=== PATIENT | male | born 1990 | race Caucasian/White ===

== ENCOUNTER 2023-03-10 10:33 | Emergency (ER) | payer OTHER ==
--- OUTSIDE RECORDS SUMMARY | 2023-03-10 10:36 | XMS REPORT | Continuity of Care Document ---
:1990 Author Organization [facility] t Address [address] [facility] [address] [place] [address] Care Team Providers Name Role Phone Pcp, Patient Does Not Have A Primary Care Physician [id number] Go Stout Attending Clinician Unavailable Amado Attending Clinician Unavailable Rios BETANCUR Attending Clinician Unavailable Rios Warren Attending Clinician Doctor Unassigned, [place] Attending Clinician Unavailable Apurva Jimenez Attending Clinician APURVA MAST Attending Clinician Unavailable Lab, Adc Fam Pob I Attending Clinician Unavailable Elzbieta Dykes Attending Clinician ELZBIETA NOGUERA Attending Clinician Unavailable Physician, No Primary or Family Admitting Clinician Unavaila sterling Fischer Admitting Clinician Unavailable Rios BETANCUR Admitting Clinician Unavailable Payers Payer Name Policy Type Policy Number Effective Date Expiration Date Naa euceda [facility] [id number] 2022 [facility] 00:00:00 [place] [id number] (PPO[place] R [id number] 2022 00:00:00 Problems Condition Condition Condition Status Onset Resolution Last Treating Co mments Source Name Details Category Date Date Treatment Clinician Date No known No known Disease Unive rs active active ity of problems problems [facility] Allergies, Adverse Reactions, Alerts Allergy Allergy Status Severity Reaction(s) Onset Inactive Treating Comm ents Source Name Type Date Date Clinician Penicill DA Active [facility] 8 Clear 00:00: Soto 00 [facility] Penicill DA Active [facility] ins 8 Clear 00:00: Soto 00 [facility] NO KNOWN Drug Active Univers ALLERGIE Class ity of S [facility] Social History Social Habit Start Date Stop Date Quantity Comments Source Sexual orientation [facility] Exposure to 2022-07-02 2022-07-12 Not sure [facility] SARS-CoV-2 (event) 00:00:00 10:37:00 [facility] Sex Assigned At [birth year] [facility] 00:00:00 00:00:00 [facility] Smoking Status Start Date Stop Date Source Tobacco smoking consumption Univ [facility] Medications Ordered Filled Start Stop Current Ordering Indication Dosage Frequency Signature Comments Components Source Medication Medication Date Date Medication? Clinician (SIG) Name Name ketorolac 2022- No 15mg 15 mg, Unive rs (TORADOL) 07-12 Intramuscu ity of injection 17:30: 16:32 [place], ONCE, [place] 15 mg 00 :00 1 dose, On Medical Mon Branch 07/12/22 at 1230, TURNER HYDROcodone 2022- No 1{tbl} 1 tablet, Univers -acetaminop 07-12 Oral, ity of hen (NORCO) 17:30: 16:32 [place]CE[place] 10-325 mg 00 :00 dose, On Medica l tablet 1 Mon Branch tablet 07/12/22 at 1230, Routine methocarbam Yes [id number] 500mg Take 1 Univers oL 500 mg -13 tablet by ity o f tablet 00:00: mouth 4 [place] 00 (four) Medical times Branch daily. ibuprofen Yes [id number] 600mg Take 1 Univers 600 mg -13 tablet by ity of tablet 00:00: mouth [place] 00 every 6 Medical (six) Branch hours as needed for Pain (scale 4-6). traMADoL 50 2020- No 4647 50mg Take 1 Uni vers mg tablet 10-1625 tablet by ity of 00:00: 04:59 mouth [place] 00 :00 every 6 Medical (six) Branch hours as needed for Pain (scale 4-6) for up to 7 days. Indication s: acute pain traMADoL 50 2020- No 4647 50mg Take 1 Uni vers mg tablet 10-1625 tablet by ity of 00:00: 04:59 mouth [place] 00 :00 every 6 Medical (six) Branch hours as needed for Pain (scale 4-6) for up to 7 days. Indication s: acute pain traMADoL 50 2020- No 4647 50mg Take 1 Uni vers mg tablet 10-1625 tablet by ity of 00:00: 04:59 mouth [place] 00 :00 every 6 Medical (six) Branch hours as needed for Pain (scale 4-6) for up to 7 days. Indication s: acute pain traMADoL 50 2020- No 4647 50mg Take 1 Uni vers mg tablet 10-08 tablet by ity of 00:00: 04:59 mouth [place] 00 :00 every 6 Medical (six) Branch hours as needed for Pain (scale 4-6) for up to 7 days. Indication s: acute pain traMADoL 50 2020- No 4647 50mg Take 1 Uni vers mg tablet 10-08 tablet by ity of 00:00: 04:59 mouth [place] 00 :00 every 6 Medical (six) Branch hours as needed for Pain (scale 4-6) for up to 7 days. Indication s: acute pain No known No [facility] No known No [facility] No known No [facility] No known No [facility] medications [facility] No known No Univers medications [facility] No known No Univers medications [facility] Vital Signs Vital Name Observation Time Observation Value Comments Source Systolic blood 2022-07-12 15:38:00 134 mm[Hg] Univer sity of pressure [facility] Diastolic blood 2022-07-12 15:38:00 76 mm[Hg] Unive rsity of pressure [facility] Heart rate 2022-07-12 15:38:00 70 /min Universi ty of [facility] Body temperature 2022-07-12 15:38:00 36.83 Samantha [facility] ersity of [facility] Respiratory rate 2022-07-12 15:38:00 20 /min [facility] ersity of [facility] Body height 2022-07-12 15:38:00 175.3 cm Universi ty of [facility] Body weight 2022-07-12 15:38:00 90.719 kg Universi ty of [facility] [place] [facility] Branch BMI 2022-07-12 15:38:00 29.53 kg/m2 Universi ty of [facility] Oxygen saturation in 2022-07-12 15:38:00 98 /min [facility] Arterial blood by [facility] Pulse oximetry Branch Body temperature 2020-11-13 21:31:00 36.83 Samantha [facility] Body height 2020-11-13 21:31:00 175.3 cm Universi ty of [facility] Body weight 2020-11-13 21:31:00 80.513 kg Universi ty of [facility] BMI 2020-11-13 21:31:00 26.21 kg/m2 Universi ty of [facility] Body temperature 2020-10-16 20:10:00 36.78 Samantha [facility] ersity of [facility] Body height 2020-10-16 20:10:00 175.3 cm Universi ty of [facility] Body weight 2020-10-16 20:10:00 81.466 kg Universi ty of [facility] BMI 2020-10-16 20:10:00 26.52 kg/m2 Universi ty of [facility] Body temperature 2020-10-08 16:12:00 36.78 Samantha [facility] ersity of [facility] Body height 2020-10-08 16:12:00 175.3 cm Universi ty of [facility] Body weight 2020-10-08 16:12:00 83.19 kg Universi ty of [facility] BMI 2020-10-08 16:12:00 27.08 kg/m2 Universi ty of [facility] Procedures Procedure Date / Time Performing Clinician Source Performed CONSENT/REFUSAL FOR 2022-07-12 15:25:56 [facility] DIAGNOSIS AND TREATMENT [place] [facility] XR WRIST 3+ VW LEFT 2020-10-16 20:29:48 Apurva Mast ty [facility] NO SHOW OR MISSED 2020-10-08 16:01:[address] [facility] APPOINTMENT POLICY [place] Medical [facility] h ACKNOWLEDGEMENT Encounters Start End Encounter Admission Attending Care Care Encounter Source Date/Time Date/Time Type Type Clinicians Facility Department ID 2020-10-05 Inpatient EM Girish, HCACL DARCI [id number] [facility] 17:49:00 Go Mahmood [facility] 2022-09-13 2022-09-13 Outpatient FOG_Burke_R AOSM AOSM [id number] Gloria 00:00:00 00:00:00 Agata [id number] [facility] 2022-09-10 2022-09-10 Outpatient FOG_Burke_R AOSM AOSM [id number] Gloria 00:00:00 00:00:00 Agata [id number] Ortho pe dic [facility] Medicin e 2022-07-12 2022-07-12 Emergency X GYPSY, K [facility] ERT [id number] Univers 10:39:00 13:32:00 ity of [facility] 2022-07-12 2022-07-12 Emergency Gypsy, K [facility] [id number] Univers 10:39:00 13:32:00 Carla GUEVARA [id number] i ty [facility] [id number] [facility] [id number] [facility] 084 Branch 2022-07-12 2022-07-12 Orders Doctor OLEKSANDR [id number] Univers 00:00:00 00:00:00 Only UnassignedJANETTE [id number] ity of [place] [facility] [id number] [facility] [id number] [facility] 009 Branch 2020-11-13 2020-11-13 Hospital Pro [facility] [id number] Univers 16:35:00 23:59:00 Encounter Apurva SPECIALTY [id number] ity of [id number] [phone] Mn liyah GRIFFITH [address] [facility] 2020-11-13 2020-11-13 [facility] [id number] Univers 16:25:32 17:02:04 Visit Apurva SPECIALTY [id number] ity [id number] [place] [phone] Mn liyah GRIFFITH [address] [facility] 2020-11-13 2020-11-[address] [facility] [id number] Univers 16:40:00 16:40:00 APURVA ity [facility] 2020-10-16 2020-10-16 Hospital [facility] [id number] Univers 15:15:00 23:59:00 Encounter Apurva SPECIALTY [id number] ity of CARE [id number] [facility] [phone] Mn rissanorbert MARTINLucy [address] [facility] 2020-10-16 2020-10-16 Outpatient R [facility] [id number] Univers 16:40:00 16:40:00 APURVA ity [facility] 2020-10-16 2020-10-16 Office [facility] [id number] Univers 15:04:09 15:56:17 Visit Apurva SPECIALTY [id number] ity of C[id number] [id number] Mn liyah MARTINLucy [address] [place] [address] 2020-10-08 2020-10-08 Office [facility] 1.2.840.114 [id number] Univers 11:02:23 12:11:09 Visit Apurva SPECIALTY [id number] ity of C[place] [id number] [place] [phone] Mn rissanorbert MARTINLucy [address] [place] [address] 2020-10-08 2020-10-08 Outpatient R [facility] [id number] Univers 11:20:00 11:20:00 APURVA ity [facility] 2020-10-08 2020-10-08 Orders Doctor OLEKSANDR 1.2.840.114 [id number] Univers 00:00:00 00:00:00 Only Unassigned, JANETTE [id number] ity of [place] HOSPITAL [id number] [place] as [id number] [facility] [address] [place] 2019-11-08 2019-11-08 Patient Doctor OLEKSANDR 1.2.840.114 [id number] Univers 00:00:00 00:00:00 Secure Msg Unassigned, JANETTE [id number] ity of [place] HOSPITAL [id number] [place] as [id number] [facility] [address] [place] 2019-11-06 2019-11-06 Laboratory Lab, [facility] Fam Pob I [facility] 1.2. [id number] [facility] 13:42:44 14:02:44 Only Elzbieta [facility] [id number] ity of [place] [id number] [place] as Professio [phone] Mn dical [address] Office Building [facility] 2019-11-06 2019-11-06 Laboratory Lab, [facility] 1.2.840.114 [id number] 13:42:44 14:02:44 Only Fam Pob I Health [id number] [place] [id number] Professio [phone] [place] [address] Office Building [facility] 2019-11-06 2019-11-[address] [facility] [id number] [place] [facility] 13:40:00 13:40:00 ELZBIETA suarez [facility] Results Test Description Test Time Test Comments Results Result [facility] e Comments XR WRIST 3+ VW 2020-09-30 Healing distal Unive rsity of LEFT 7 radius fracture. [facility] 21:07:29 4728 Electronically [facility] h signed by Luisito Wright at 10/16/2020 4:07 PMORDERING PHYSICIAN: APURVA MAST HISTORY: Radius fracture COMPARISON: October 05, 2020 TECHNIQUE: 3 views FINDINGS: Cast of scattered details on the film. There is a healing comminuted distalradius fracture. No clear articular extension. Similar minimal dorsalangulation of the distal fracture fragment. Carpal bones are intact. [facility], Radiant Results Inft User - 10/16/2020 4:08 PM CDT ORDERING PHYSICIAN: APURVA MASTHISTORY: Radius fractureCOMPARISON: October 05, 2020TECHNIQUE: 3 views FINDINGS:Cast of scattered details on the film. There is a healing comminuted distalradius fracture. No clear articular extension. Similar minimal dorsalangulation of the distal fracture fragment. Carpal bones are intact.IMPRESSIONHeal ing distal radius fracture.RL [id number]
--- NOTE | 2023-03-10 12:22 | RAD REPORT ---
EXAM DESCRIPTION: US - UPPER EXTREMITY VENOUS UNILATE - 03/10/2023 11:59 am CLINICAL HISTORY: Right upper extremity swelling and pain COMPARISON: None. FINDINGS: The right internal jugular, subclavian, brachial, axillary, cephalic, basilic, radial and ulnar veins demonstrate phasic signal. The veins are generally compressible. Doppler demonstrates good flow Patient has 2 palpable areas within the upper right arm. One measures 1.8 centimeters and is hypoecho ic. The other measures 2.7 x 2.3 centimeters with an echogenic hilum. The majority of the periphery i s hypoechoic. They contain vascularity Grayscale, color and spectral analysis performed on all vessels IMPRESSION: No evidence of thrombus involving the right upper extremity Two palpable structures right upper arm most likely the lymph nodes. They probably are reactive in na ture. As neoplastic involvement can have this appearance it is recommended that the patient have a fo llowup ultrasound in 2-3 months to assess stability
--- NOTE | 2023-03-10 12:54 | ER ---
Nurse's Notes [facility] Name: Sharan Noel Age: 33 yrs Sex: Male : 1990 Arrival Date: 03/10/2023 Time: 10:33 Bed 9 Private MD: Diagnosis: Acute lymphadenitis, unspecified Presentation: 03/10 11:11 Coronavirus screen: Vaccine status: Patient reports being unvaccinated. Ebola Screen: kd3 No symptoms or risks identified at this time. Initial Sepsis Screen: Does the patient meet any 2 criteria? No. Patient's initial sepsis screen is negative. Does the patient have a suspected source of infection? No. Patient's initial sepsis screen is negative. Risk Assessment: Do you want to hurt yourself or someone else? Patient reports no desire to harm self or others. Onset of symptoms was March 10, 2023. 11:11 Method Of Arrival: Ambulatory kd3 11:11 Acuity: FIDEL 4 kd3 11:12 Chief complaint: Patient states: I have had these painful bumps on my right arm for two kd3 weeks now. They are about a 5/10 on the pain scale. They do not itch. There are two bumps under the skin like i got bit by something. Triage Assessment: 11:11 General: Appears in no apparent distress. Behavior is calm, cooperative. Pain: kd3 Complains of pain in right arm. Neuro: Level of Consciousness is awake, alert, obeys commands, Oriented to person, place, time, situation. Historical: - Allergies: 11:11 No Known Allergies; kd3 - Immunization history:: Adult Immunizations up to date. - Social history:: Smoking status: Reported history of juuling and/or vaping. Screenin:51 [facility] ED Fall Risk Assessment (Adult) Score/Fall Risk Level. Abuse screen: Denies iw threats or abuse. Denies injuries from another. Nutritional screening: No deficits noted. Tuberculosis screening: No symptoms or risk factors identified. Assessment: 12:50 General: Appears in no apparent distress. Behavior is calm, cooperative. Pain: iw Complains of pain in right arm. Neuro: Level of Consciousness is awake, alert, obeys commands, Oriented to person, place, time, situation, Moves all extremities. Full function. Cardiovascular: Patient's skin is warm and dry. Respiratory: Respiratory effort is even, unlabored, Respiratory pattern is regular. GI: Abdomen is non-distended. Derm: Skin is intact, is healthy with good turgor. Musculoskeletal: Range of motion: intact in all extremities, Swelling present in right bicep. Vital Signs: 11:11 Pulse 62; Resp 17; Temp 99.6(O); Pulse Ox 100% ; Weight 81.65 kg; Height 5 ft. 9 in. ; kd3 11:12 BP 132 / 54; Pain 5/10; kd3 11:11 Body Mass Index 26.58 (81.65 kg, 175.26 cm) kd3 11:12 Pain Scale: Adult kd3 ED Course: 10:34 Patient arrived in ED. rg4 10:38 Francisco Dc DO is Attending Physician. ms3 11:11 Triage completed. kd3 11:12 Arm band placed on left wrist. kd3 12:01 UPPER EXTREMITY VENOUS UNILATE In Process Unspecified. EDMS 12:48 Melissa Rossi, RN is Primary Nurse. iw 12:50 Patient has correct armband on for positive identification. Provided Education on: . iw 12:51 No provider procedures requiring assistance completed. iw 12:53 Ang Montez DO is Referral Physician. ms3 Administered Medications: No medications were administered Medication: 12:51 VIS not applicable for this client. iw Outcome: 12:54 Discharge ordered by . ms3 13:02 Discharged to home ambulatory, iw 13:02 Condition: good 13:02 Discharge instructions given to patient, Instructed on discharge instructions, follow up and referral plans. Demonstrated understanding of instructions, follow-up care, medications, Prescriptions given X 3, 13:04 Patient left the ED. iw Signatures: Dispatcher [employer] EDMelissa Freeman, RN Nehal Montalvo rg4 Francisco Dc DO DO ms3 Estela Tripp RN RN kd3
--- NOTE | 2023-03-10 12:54 | EDPHYS ---
Physician Documentation [facility] Name: Sharan Noel Age: 33 yrs Sex: Male : 1990 Arrival Date: 03/10/2023 Time: 10:33 Bed 9 Private MD: ED Physician Francisco Dc HPI: 03/10 11:03 This 33 yrs old Male presents to ER via Unassigned with complaints of Bumps In Arm. ms3 11:03 33-year-old male with no past medical history presents for knots in his right arm for 2 ms3 weeks. Patient endorses chills. Patient denies nausea, vomiting, hand trauma. Patient denies any alleviating or inciting factors. Historical: - Allergies: 11:11 No Known Allergies; kd3 - Immunization history:: Adult Immunizations up to date. - Social history:: Smoking status: Reported history of juuling and/or vaping. ROS: 11:03 Eyes: Negative for injury, pain, redness, and discharge, Cardiovascular: Negative for ms3 chest pain, and palpitations. Respiratory: Negative for shortness of breath, cough, wheezing, and pleuritic chest pain, Abdomen/GI: Negative for abdominal pain, nausea, vomiting, diarrhea, and constipation, MS/Extremity: Negative for injury and deformity, Skin: Negative for injury, rash, and discoloration, 11:03 Constitutional: Positive for chills, 11:03 All other systems are negative, Exam: 11:03 Constitutional: This is a well developed, well nourished patient who is awake, alert, ms3 and in no acute distress. Head/Face: Normocephalic, atraumatic. Chest/axilla: Normal chest wall appearance and motion. Nontender with no deformity. Cardiovascular: Regular rate and rhythm with a normal S1 and S2. No gallops, murmurs, or rubs. Normal PMI, no JVD. No pulse deficits. Respiratory: Lungs have equal breath sounds bilaterally, clear to auscultation and percussion. No rales, rhonchi or wheezes noted. No increased work of breathing, no retractions or nasal flaring. Abdomen/GI: Soft, non-tender, with normal bowel sounds. No distension or tympany. No guarding or rebound. No evidence of tenderness throughout. Skin: Warm, dry with normal turgor. Normal color with no rashes, no lesions, and no evidence of cellulitis. 11:03 Musculoskeletal/extremity: Extremities: noted in the right arm: pain, tenderness, Vital Signs: 11:11 Pulse 62; Resp 17; Temp 99.6(O); Pulse Ox 100% ; Weight 81.65 kg; Height 5 ft. 9 in. ; kd3 11:12 BP 132 / 54; Pain 5/10; kd3 11:11 Body Mass Index 26.58 (81.65 kg, 175.26 cm) kd3 11:12 Pain Scale: Adult kd3 MDM: 11:00 Patient medically screened. ms3 11:03 Differential diagnosis: DVT vs MSK pain/ spasm vs Abscess. ms3 12:54 Data reviewed: vital signs, nurses notes, radiologic studies, and as a result, I will ms3 discharge patient. Counseling: I had a detailed discussion with the patient and/or guardian regarding the historical points, exam findings, and any diagnostic results supporting the discharge/admit diagnosis, radiology results, the need for outpatient follow up, to return to the emergency department if symptoms worsen or persist or if there are any questions or concerns that arise at home. ED course: Discussed ultrasound findings with patient. Discussed with patient necessity for ultrasound follow-up. Patient to follow-up with his primary care physician in 2 to 3 days. Patient understands and agrees with plan. All questions were answered. Return precautions discussed include worsening symptoms, or any other concern. 03/10 11:10 Order name: UPPER EXTREMITY VENOUS UNILATE; Complete Time: 12:51 EDMS Administered Medications: No medications were administered Disposition Summary: 03/10/23 12:54 Discharge Ordered Notes: Location: Home ms3 Condition: Stable ms3 Diagnosis - Acute lymphadenitis, unspecified ms3 Followup: ms3 - With: Ang Montez DO - When: 2 - 3 days - Reason: Recheck today's complaints Discharge Instructions: - Discharge Summary Sheet ms3 - Lymphadenopathy ms3 Forms: - Work release form iw - Medication Reconciliation Form ms3 - Thank You Letter ms3 - Antibiotic Education ms3 - Prescription Opioid Use ms3 - Patient Portal Instructions ms3 - Leadership Thank You Letter ms3 Prescriptions: - Clindamycin HCl 300 mg Oral capsule - take 1 capsule ORAL route every 8 hours for 10 days; 30 capsule; Refills: 0, ms3 Product Selection Permitted Signatures: Dispatcher [employer] EDMS Francisco Dc DO DO ms3 Estela Tripp, RN RN kd3 Corrections: (The following items were deleted from the chart) 11:10 11:01 Extremity Venous Uni [email or web address] ordered. EDMS EDMS
[2023-03-10 13:12] VITALS: TEMP 99.6; O2SAT 100
[2023-03-10 13:13] VITALS: BP 132/54
== END 2023-03-10 13:04 | disposition home or self-care (01) ==
LOC: ER 10:33
DX: L04.9 Acute lymphadenitis, unspecified (principal)
CPT/HCPCS: 93971; 99283